=== PATIENT | female | born 1930 | race Caucasian/White ===

== ENCOUNTER 2018-09-01 13:20 | Inpatient (IN) | payer BC, MEDICARE ==
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
[2018-09-01 14:39] LABS: Hematocrit 34.4 % (37.0-47.0); Hemoglobin 11.3 gm/dL (12.5-16.0); Mean Cell Volume 91.5 fl (78-100); Mean Corpuscular Hemoglobin 30.1 pg (27-31); Mean Corpuscular Hgb Conc 32.8 g/dl (32-36); Neutrophil # 15.5 K/mm3 (1.3-6.0); Neutrophil % 88.5 % (42-75.0); Platelet Count 249 K/mm3 (150-450); Red Blood Count 3.76 M/mm3 (4.2-5.4); Red Cell Distribution Width 12.3 % (11.5-14.0); White Blood Count 17.5 K/mm3 (4.0-10.5)
[2018-09-01 14:48] LABS: Albumin * 3.3 gm/dl (3.4-5.0); Anion Gap 15.3 mmol/L (6.8-13.8); BUN/Creatinine Ratio 25.5 (9.0-21.6); Bilirubin, Total 0.3 mg/dL (0.0-1.1); Carbon Dioxide 22.8 mmol/L (24-32.6); Potassium 4.1 mmol/L (3.4-4.6); Total Protein 6.4 gm/dL (6.2-8.2)
[2018-09-01 14:52] LABS: Calcium * 8.8 mg/dL (7.9-10.9)
[2018-09-01] MEDS ORDERED: ACETAMINOPHEN 500 MG TABLET PO PRN ×2 (15:26→17:20)
[2018-09-01] MEDS ORDERED: ONDANSETRON HCL/PF 2 MG/ML VIAL IV PRN ×2 (15:26→17:25)
[2018-09-01] MEDS ORDERED: MORPHINE SULFATE 4 MG/ML SYRG IV PRN (15:26)
[2018-09-01] MEDS ORDERED: HYDROcodone/ACETAMINOPHEN 1 EACH TABLET PO PRN (15:26)
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
--- NOTE | 2018-09-01 17:18 | HP ---
Chief Complaint - Chief Complaint Date of Service: 09/01/18 - n Time of Service: 17:08 Chief Complaint: I have left hip pain since falling this morning History of Present Illness: 88-year-old female with past medical history of hypertension, hyperlipidemia, CKD, was brought to the ER in an ambulance due to left hip pain secondary to a fall that occurred this morning when she slipped on ice. Patient reports while walking with her walker she did not see a passive patch of ice and slipped when she attempted to walk across. Patient fell on her left side but denies hitting her head or loss of consciousness. Upon arriving to the ER had CT and x-rays of the lower extremities were performed and revealed no acute injuries in the brain but a displaced intertrochanteric fracture of the left hip. Ortho was consulted and after evaluating her the instructed as to admit her and prepare for surgery in the morning. Therefore patient was admitted to inpatient diallo and presurgical orders were placed. Medical History (Last Updated 09/01/18 @ 16:20 by Ely Torres RN) Hypertension (Chronic) Onset Date: Unknown Hypercholesterolemia (Chronic) Onset Date: Unknown Surgical History: Surgical History (Last Updated 09/01/18 @ 16:20 by Ely Torres RN) Femur fracture, right rods placed Cataract Onset Date: ~2007 Bilateral eyes History of hip surgery Onset Date: ~08/23/11 Right hip repair Family History: Family History (Last Reviewed 09/01/18 @ 16:20 by Ely Torres RN) Brother , age 91; after hip fracture No problems noted. Sister , age 88 Diabetes COPD (chronic obstructive pulmonary disease) Mother , age 84 Myocardial infarction Social History: Patient Lives/Resources Home Utilized Preferred Language Syriac Do you have any buddhist or No cultural preference? Smoking Status Former smoker Have you smoked in the past 12 No months Alcohol Use none Drug Use none (Last Updated 07/21/18 @ 11:15 by Bhargavi Byrne RN) No Social History Section defined Peds Patient Hx - Developmental: No Pertinent Hx Peds Patient Hx - Medical: No Pertinent Hx Peds Patient Hx - Cardiac/Respiratory: No Pertinent Hx Peds Patient Hx - Surgical: No Surgical History Patient History - Cancer: No Hx of Cancer Review Of Systems (GEN) - Review of Systems Generalized/Overall Review: Present: No Symptoms Reported EENTM: Present: No Symptoms Reported Respiratory: Present: No Symptoms Reported Cardiac: Present: No Symptoms Reported Abdominal: Present: No Symptoms Reported Genitourinary: Present: No Symptoms Reported Musculoskeletal: Present: Joint Pain Neurological: Present: No Symptoms Reported Skin: Present: No Symptoms Reported Endocrine: Present: No Symptoms Reported Immunizations: IMMUNIZATION HX Immunizations Up to Date Yes History of Influenza Vaccine Yes Hx Pneumococcal Vaccination Yes Allergies/Adverse Reactions: Allergies Allergy/AdvReac Type Severity Reaction Status Date / Time No Known Allergies Allergy Verified 09/01/18 16:20 Home Medications: HOME MEDICATIONS lisinopril 10 mg tablet 10 mg PO DAILY #90 tab 07/10/18 [Last Taken Unknown] simvastatin 40 mg tablet 40 mg PO QPM #90 tab 07/10/18 [Last Taken Unknown] triamterene 75 mg-hydrochlorothiazide 50 mg tablet 1 tab PO DAILY #90 tab 07/10/18 [Last Taken Unknown] cyanocobalamin (vit B-12) 1,000 mcg tablet 1,000 mcg PO QMWF tab 07/21/18 [Last Taken Unknown] Exam - Exam Vital Signs: Vital Signs - Last Taken Temp 36.5 C 09/01/18 15:28 Pulse 86 09/01/18 15:35 Resp 17 09/01/18 15:35 BP 126/71 09/01/18 15:35 Pulse Ox 98 09/01/18 15:35 Constitutional: Present: Alert, Oriented x3, Cooperative, Well developed, Well nourished, No distress, Elderly ENT Exam: Present: normal ENT inspection, hearing grossly normal, pharynx normal, TMs normal Eye Exam: bilateral eye: normal inspection, PERRL, EOMI Neck: Present: non-tender, full range of motion, supple, normal inspection, trachea midline Back Exam: Present: normal inspection, no CVA tenderness, no vertebral tenderness Breasts: Present: Exam deferred Respiratory: Present: chest non-tender, lungs clear, normal breath sounds, no respiratory distress, no accessory muscle use Cardiovascular/Chest: Present: normal peripheral pulses, regular rate, rhythm, no chest tenderness, no edema, no gallop, no JVD, no murmur Peripheral Pulses: carotid (R): 3+, carotid (L): 3+, femoral (R): 3+, femoral (L): 3+, dorsalis-pedis (R): 3+, dorsalis-pedis (L): 3+ Abdomen: Present: Normal bowel sounds, soft, nontender, nondistended, no rebound tenderness, no hepatospenomegaly, no masses /Rectal: Present: Exam deferred Extremity: Present: no calf tenderness, normal capillary refill, leg pain, pedal edema, other - Externally rotated and shortened left lower extremity. 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, normal cerebellar test, no motor/sensory deficits, alert, normal mood/affect, oriented x 3 Appearance: Present: appropriate appearance, appropriate insight, neat, no memory impairment Eye contact: Present: cooperative, good eye contact, normal speech Thoughts: Present: normal thought pattern Diagnostic Studies: Abnormal Lab Results 09/01/18 09/01/18 Range/Units 14:30 14:30 WBC 17.5 H (4.0-10.5) K/mm3 RBC 3.76 L (4.2-5.4) M/mm3 Hgb 11.3 L (12.5-16.0) gm/dL Hct 34.4 L (37.0-47.0) % Immature Gran % (Auto) 0.90 H (0.001-0.429) % Immature Gran # (Auto) 0.15 H (0.000-0.0310) K/mm3 Neutrophils % 88.5 H (42-75.0) % Lymphocytes % 4.0 L (20-51) % Neutrophils # 15.5 H (1.3-6.0) K/mm3 Lymphocytes # 0.71 L (1.5-3.5) k/mm3 Monocytes # 1.1 H (0.0-1.0) k/mm3 Carbon Dioxide 22.8 L (24-32.6) mmol/L Anion Gap 15.3 H (6.8-13.8) mmol/L BUN 36 H (3-23) mg/dL Creatinine 1.41 H (0.4-1.4) mg/dL Est GFR (Non-Af Amer) 37 L (60-130) mL/min BUN/Creatinine Ratio 25.5 H (9.0-21.6) Random Glucose 192 H (70-110) mg/dL ALT 15 L (19-67) U/L Albumin 3.3 L (3.4-5.0) gm/dl Laboratory Results WBC 17.5 K/mm3 (4.0-10.5) H 09/01/18 14:30 RBC 3.76 M/mm3 (4.2-5.4) L 09/01/18 14:30 Hgb 11.3 gm/dL (12.5-16.0) L 09/01/18 14:30 Hct 34.4 % (37.0-47.0) L 09/01/18 14:30 MCV 91.5 fl (78-100) 09/01/18 14: MCH 30.1 pg (27-31) 09/01/18 14: MCHC 32.8 g/dl (32-36) 09/01/18 14:30 RDW 12.3 % (11.5-14.0) 09/01/18 14:30 Plt Count 249 K/mm3 (150-450) 09/01/18 14:30 MPV 10.0 fl (8-12.5) 09/01/18 14:30 Immature Gran % (Auto) 0.90 % (0.001-0.429) H 09/01/18 14:30 Immature Gran # (Auto) 0.15 K/mm3 (0.000-0.0310) H 09/01/18 14:30 Neutrophils % 88.5 % (42-75.0) H 09/01/18 14:30 Lymphocytes % 4.0 % (20-51) L 09/01/18 14:30 Monocytes % 6.3 % (0.0-9) 09/01/18 14:30 Eosinophils % 0.1 % (0.0-3.0) 09/01/18 14: Basophils % 0.2 % (0.0-1.0) 09/01/18 14:30 Nucleated RBC % 0.0 k/mm3 (0-1) 09/01/18 14:30 Neutrophils # 15.5 K/mm3 (1.3-6.0) H 09/01/18 14:30 Lymphocytes # 0.71 k/mm3 (1.5-3.5) L 09/01/18 14:30 Monocytes # 1.1 k/mm3 (0.0-1.0) H 09/01/18 14:30 Eosinophils # 0.0 k/mm3 (0.0-0.7) 09/01/18 14:30 Absolute Basophils 0.0 k/mm3 (0.0-0.1) 09/01/18 14:30 Sodium 136 mmol/L (132-142) 09/01/18 14:30 Plasma Sodium 137 mmol/L (130-142) 09/01/18 14:30 Potassium 4.1 mmol/L (3.4-4.6) 09/01/18 14:30 Chloride 102 mmol/L (97-106) 09/01/18 14:30 Carbon Dioxide 22.8 mmol/L (24-32.6) L 09/01/18 14:30 Anion Gap 15.3 mmol/L (6.8-13.8) H 09/01/18 14:30 BUN 36 mg/dL (3-23) H 09/01/18 14:30 Creatinine 1.41 mg/dL (0.4-1.4) H 09/01/18 14:30 Est GFR (Non-Af Amer) 37 mL/min (60-130) L 09/01/18 14:30 BUN/Creatinine Ratio 25.5 (9.0-21.6) H 09/01/18 14:30 Random Glucose 192 mg/dL (70-110) H 09/01/18 14:30 Calcium 8.8 mg/dL (7.9-10.9) 09/01/18 14:30 Calcium Adj for Albumin 9.0 mg/dL (8.4-10.2) 09/01/18 14:30 Total Bilirubin 0.3 mg/dL (0.0-1.1) 09/01/18 14:30 AST 17 U/L (0-48) 09/01/18 14:30 ALT 15 U/L (19-67) L 09/01/18 14:30 Alkaline Phosphatase 64 U/L (50-170) 09/01/18 14:30 Creatine Kinase 81 U/L (0-259) 09/01/18 14:30 Total Protein 6.4 gm/dL (6.2-8.2) 09/01/18 14:30 Albumin 3.3 gm/dl (3.4-5.0) L 09/01/18 14:30 Assessment/Plan - Narrative Narrative: After evaluation of patient at bedside and the medical record decision to admit to inpatient diallo for surgery in the morning with Ortho was taken. Preop labs and orders were placed. Will follow up with patient at the procedure. - Assessment/Plan (1) Hip fracture, intertrochanteric Problem: Acute Qualifiers: Encounter type: initial encounter Fracture type: closed Fracture alignment: displaced Laterality: left Qualified Code(s): S72.142A - Displaced intertrochanteric fracture of left femur, initial encounter for closed fracture (2) Fall Problem: Acute Qualifiers: Encounter type: initial encounter Qualified Code(s): W19.XXXA - Unspecified fall, initial encounter
[2018-09-01] MEDS ORDERED: MORPHINE SULFATE 2 MG/ML DISP.SYRIN IV PRN ×3 (17:26→17:30)
[2018-09-01] MEDS: CYANOCOBALAMIN 1,000 MCG TABLET PO SCH (17:41)
[2018-09-01] MEDS: SIMVASTATIN 40 MG TABLET PO SCH (20:40)
[2018-09-02] MEDS: RINGER'S SOLUTION,LACTATED 1,000 ML IV PRN ×2 (05:23→13:00)
--- NOTE | 2018-09-02 11:40 | ANES ---
Anesthesia Pre Procedure Eval Vitals/Labs: Last Vital Signs Temp 36.9 C 09/02/18 08:00 Pulse 93 09/02/18 08:00 Resp 20 09/02/18 08:00 BP 154/71 H 09/02/18 08:00 Pulse Ox 96 09/02/18 08:00 HOME MEDICATIONS lisinopril 10 mg tablet 10 mg PO DAILY #90 tab 07/10/18 [Last Taken Unknown] simvastatin 40 mg tablet 40 mg PO QPM #90 tab 07/10/18 [Last Taken Unknown] triamterene 75 mg-hydrochlorothiazide 50 mg tablet 1 tab PO DAILY #90 tab 07/10/18 [Last Taken Unknown] cyanocobalamin (vit B-12) 1,000 mcg tablet 1,000 mcg PO QMWF tab 07/21/18 [Last Taken Unknown] Allergies/Adverse Reactions: Allergies Allergy/AdvReac Type Severity Reaction Status Date / Time No Known Allergies Allergy Verified 09/01/18 16:20 - Planned Procedure Planned Procedure: ORIF left hip Medication List Reviewed:: Yes Allergies Verified: Yes Medical History (Last Reviewed 09/02/18 @ 11:39 by Ad Levine CRNA) Hypertension (Chronic) Onset Date: Unknown Hypercholesterolemia (Chronic) Onset Date: Unknown Surgical History (Last Reviewed 09/02/18 @ 11:39 by Ad Levine CRNA) Femur fracture, right rods placed Cataract Onset Date: ~2007 Bilateral eyes History of hip surgery Onset Date: ~08/23/11 Right hip repair Family History (Last Reviewed 09/02/18 @ 11:39 by Ad Levine CRNA) Brother , age 91; after hip fracture No problems noted. Sister , age 88 Diabetes COPD (chronic obstructive pulmonary disease) Mother , age 84 Myocardial infarction - Family Anesthesia History Family History:: no untoward family reactions to anesthesia, no familial bleeding tendencies, no family history of clotting disorders, no family history of premature - Airway/Neck/Teeth Within Normal Limits:: Yes Denture Type: Full- Upper & Lower Mallampatti Score: 2 Thyromental (T-M) distance: > 6 cm Mandibulo Hyoid distance: > 3 cm - Respiratory Respiratory: lungs clear Smoking Status: Never smoker Discussed smoking cessation including day of surgery: No Sleep Apnea currently treated: No Sleep Apnea by current assessment: No Discussed Risks/Treatment of CAROLYNN: No - Cardiovascular Tolerates Activity: Fair Heart Sounds: S1 & S2, Regular - Anesthesia Assessment and Plan ASA Class: PS, III Anesthesia Type Plan: Spinal
--- NOTE | 2018-09-02 11:51 | PN ---
Subjective - Date and Time Seen Date: 09/02/18 Time: 11:39 Subjective Narrative: I feel sleepy and tired, because I did not get much sleep last night. Objective Objective Narrative: Patient was evaluated at bedside and was found to be afebrile and in no acute distress. She reports adequate pain control and is comfortable. Procedure to repair right hip fracture scheduled for this afternoon, so patient was left n.p.o. We will recheck on her after the procedure. Her blood pressure was mildly elevated this morning therefore her blood pressure medications were administered we will reevaluate blood pressure in a few hours. - Review of Systems Generalized/Overall Review: Reports: Weakness EENTM: Reports: No Symptoms Reported Respiratory: Reports: No Symptoms Reported Cardiac: Reports: No Symptoms Reported Abdominal: Reports: No Symptoms Reported Genitourinary Symptoms: Reports: No Symptoms Reported Musculoskeletal Complaints: Reports: Joint Pain, Joint Swelling, Muscle Pain Neurological: Reports: No Symptoms Reported Skin: Reports: No Symptoms Reported Endocrine: Reports: No Symptoms Reported - Vitals Vitals: Last Vital Signs Temp 36.9 C 09/02/18 08:00 Pulse 93 09/02/18 08:00 Resp 20 09/02/18 08:00 BP 154/71 H 09/02/18 08:00 Pulse Ox 96 09/02/18 08:00 - Abnormal Lab Findings Abnormal Lab Findings: Abnormal Lab Results 09/01/18 09/01/18 Range/Units 14:30 14:30 WBC 17.5 H (4.0-10.5) K/mm3 RBC 3.76 L (4.2-5.4) M/mm3 Hgb 11.3 L (12.5-16.0) gm/dL Hct 34.4 L (37.0-47.0) % Immature Gran % (Auto) 0.90 H (0.001-0.429) % Immature Gran # (Auto) 0.15 H (0.000-0.0310) K/mm3 Neutrophils % 88.5 H (42-75.0) % Lymphocytes % 4.0 L (20-51) % Neutrophils # 15.5 H (1.3-6.0) K/mm3 Lymphocytes # 0.71 L (1.5-3.5) k/mm3 Monocytes # 1.1 H (0.0-1.0) k/mm3 Carbon Dioxide 22.8 L (24-32.6) mmol/L Anion Gap 15.3 H (6.8-13.8) mmol/L BUN 36 H (3-23) mg/dL Creatinine 1.41 H (0.4-1.4) mg/dL Est GFR (Non-Af Amer) 37 L (60-130) mL/min BUN/Creatinine Ratio 25.5 H (9.0-21.6) Random Glucose 192 H (70-110) mg/dL ALT 15 L (19-67) U/L Albumin 3.3 L (3.4-5.0) gm/dl - Exam Constitutional: Present: Alert, Oriented x3, Cooperative, Well developed, Well nourished, No distress, Acute distress ENT Exam: Present: normal ENT inspection, hearing grossly normal, pharynx no rmal, TMs normal Neck: Present: non-tender, full range of motion, supple, normal inspection, trachea midline Breasts: Present: Exam deferred Respiratory: Present: chest non-tender, lungs clear, normal breath sounds, no respiratory distress, no accessory muscle use Cardiovascular/Chest: Present: normal peripheral pulses, regular rate, rhythm, no chest tenderness, no edema, no gallop, no JVD, no murmur Abdomen: Present: Normal bowel sounds, soft, nontender, nondistended, no rebound tenderness, no hepatospenomegaly, no masses /Rectal: Present: Exam deferred Extremity: Present: no pedal edema, inflammation, leg pain Skin Exam: Present: normal color, warm/dry, no cyanosis Neurologic: Present: 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 - Problems/Diagnosis (1) Hip fracture, intertrochanteric Problem: Acute Qualifiers: Encounter type: initial encounter Fracture type: closed Fracture alignme nt: displaced Laterality: left Qualified Code(s): S72.142A - Displaced intertrochanteric fracture of left femur, initial encounter for closed fracture (2) Fall Problem: Acute Qualifiers: Encounter type: initial encounter Qualified Code(s): W19.XXXA - Unspecified fall, initial encounter
[2018-09-02] MEDS ORDERED: ceFAZolin SODIUM 1 GM VIAL IV ONE (12:13)
[2018-09-02] MEDS ORDERED: MAGNESIUM HYDROXIDE 30 ML UDC PO PRN (13:50)
[2018-09-02] MEDS ORDERED: MAG HYDROX/ALUMINUM HYD/SIMETH 30 ML UDC PO PRN (13:50)
[2018-09-02] MEDS ORDERED: HYDROcodone/ACETAMINOPHEN 1 EACH TABLET PO PRN (13:50)
[2018-09-02] MEDS ORDERED: MORPHINE SULFATE 2 MG/ML DISP.SYRIN IV PRN (13:50)
--- NOTE | 2018-09-02 14:00 | OR ---
Operative Report - Dictated Report Narrative: Date: 09/02/2018 Surgeon: Duane Lehman M.D. Chair Pad Maker: Dave Sharif PA-C Preoperative diagnosis: Left intertrochanteric femur fracture Postoperative diagnosis: Left intertrochanteric femur fracture Operations and procedures: 1. Closed reduction, cephalo-medullary fixation left intertrochanteric femur fracture 2. Intraoperative interpretation of radiographs Anesthesia: Spinal Specimens: None Estimated blood loss: 200 Milliliters Retained implants: [employer] Trigen InterTAN 130 degree size 11.5 mm by 20 centimeter nail with 95 millimeter lag screw and 90 millimeter compression screw, with distal locking screw Complications: None Indications for procedure: Gerson is a 88-year-old female who lives alone at home and ambulates with a walker who injured the left leg after lipping on the ice going out to get her mail. They were admitted to the hospital after being evaluated in the emergency department. Once the medical provider felt that they were stable for surgical treatment, the risks and benefits alternatives were discussed. The risks of , blood clots, bleeding, infection, nerve/tendon/blood vessel injury, malunion, nonunion, failure of implants, painful implants, arthrosis, and need for additional procedures were discussed. The extremity was marked and consent was obtained on the floor. Procedure: After marking the operative extremity on the floor, the patient was taken to the operating room. A timeout was performed. IV antibiotics consisting of 1 g of Ancef was administered. A spinal anesthetic was induced by anesthesia, and the patient was then placed onto a fracture table with a well-padded perineal post. The non-operative leg was placed in a well-padded well leg rose in lithotomy position with an SCD on the leg. The operative leg was placed in a well-padded traction boot. Longitudinal traction, internal rotation, flexion, and adduction were utilized in order to reduce the fracture. Preliminary images were attained utilizing C-arm in both the AP and lateral views. This confirmed that we had obtained adequate visualization of the fracture as well as reduction. Next the hip was then prepped and draped in a standard sterile fashion. Next, the guidewire was placed percutaneously proximal to the greater trochanter to aditya a starting point at the tip of the greater trochanter centered on the lateral view. This was advanced down to the level below the lesser trochanter. A scalpel was utilized to dissect down to the greater trochanter in order to advance the soft tissue protector down to bone. The entry reamer was then advanced down the proximal femur to the level of the lesser trochanter. The above nail was then selected and impacted into place. The outrigger was utilized in order to confirm the appropriate depth of the nail. Using the alignment device on the outrigger, a small incision was made over the lateral femur. Sharp dissection was carried through the iliotibial band down to the proximal femur. The guidewire was was placed into the femoral head in a center center position on AP and lateral views. A tip apex distance less than 25 mm combined was obtained. Once we felt that we had placed the guidewire in the appropriate position, it was measured. Next the compression screw entry drill was advanced through the lateral cortex. This was then drilled down to the appropriate depth for the compression screw, again confirming that we were within the confines of the bone. The derotational bar was then placed and the lag screw was drilled to the appropriate depth. The lag screw was then secured in place ensuring that we were within the confines of the bone. The compression screw was then inserted allowing for compression while releasing the traction on the leg. Using C-arm this was visualized to allow for compression across the fracture site. Once it was felt we had adequately stabilized the intertrochanteric fracture, the distal interlocking screw was placed in a static position confirmed to be the appropriate length and within the nail on both AP and lateral views. The nail was secured allowing for controlled compression and the outrigger was removed. The wounds were then thoroughly irrigated. Final images were obtained. The hip was placed through range of motion and showed no crepitance. The deep fascia was closed with 0 Vicryl, the subcutaneous tissue with 3-0 Vicryl, and the skin was closed with michael. Sterile dressings of Xeroform, 4 x 4s, and tegaderm were applied. All sponge, sharp, and instrument counts were correct prior to closing the wounds. The patient was then awoken and transferred to the postanesthesia care unit in stable condition.
--- NOTE | 2018-09-02 14:22 | ANES ---
Post Anesthesia Discharge - Transfer of Care Transfer of Care handoff given to nurse: Yes - Discharge from PACU Discharge from PACU when meets criteria: Yes - Discharge to ASU Discharge to ASU-no complications/pt stable: Yes
--- NOTE | 2018-09-02 14:22 | ANES ---
Post Anesthesia Assessment - Vital Signs Vitals: Last Vital Signs Temp 36.8 C 09/02/18 14:15 Pulse 76 09/02/18 14:15 Resp 18 09/02/18 14:15 BP 104/86 09/02/18 14:15 Pulse Ox 98 09/02/18 14:15 Airway Patency: Normal - Mental Status Level Of Consciousness: Awake - Pain Level Pain Score: 0 - N/V Assessment Nausea/Vomiting Presence: None Dehydration:: No
[2018-09-02] MEDS: LISINOPRIL 10 MG TABLET PO SCH (15:30)
[2018-09-02] MEDS: TRIAMTERENE/HYDROCHLOROTHIAZID 1 TAB TABLET PO SCH (15:31)
[2018-09-02] MEDS: ceFAZolin SODIUM 1 GM in DEXTROSE 5 % IN WATER 100 ML IV SCH ×2 (17:42)
[2018-09-02] MEDS: HYDROcodone/ACETAMINOPHEN 1 EACH TABLET PO PRN (19:38)
[2018-09-02] MEDS: SENNOSIDES/DOCUSATE SODIUM 1 TAB TABLET PO SCH (22:13)
[2018-09-02] MEDS: SIMVASTATIN 40 MG TABLET PO SCH (22:13)
[2018-09-03] MEDS: ceFAZolin SODIUM 1 GM in DEXTROSE 5 % IN WATER 100 ML IV SCH ×4 (03:17→10:55)
[2018-09-03 06:10] LABS: Mean Cell Volume 91.7 fl (78-100); Mean Corpuscular Hemoglobin 30.3 pg (27-31); Mean Platelet Volume 10.6 fl (8-12.5); Platelet Count 149 K/mm3 (150-450); Red Blood Count 2.54 M/mm3 (4.2-5.4); Red Cell Distribution Width 12.8 % (11.5-14.0); White Blood Count 8.4 K/mm3 (4.0-10.5)
[2018-09-03 06:12] LABS: Anion Gap 8.4 mmol/L (6.8-13.8); Calcium * 8.1 mg/dL (7.9-10.9); Carbon Dioxide 26.8 mmol/L (24-32.6); Estimated Creat Clear 20.1; Potassium 4.2 mmol/L (3.4-4.6)
[2018-09-03 06:16] LABS: Hemoglobin 7.7 gm/dL (12.5-16.0)
[2018-09-03 06:17] LABS: Hematocrit 23.3 % (37.0-47.0)
[2018-09-03] MEDS: HYDROcodone/ACETAMINOPHEN 1 EACH TABLET PO PRN ×2 (08:42→15:25)
[2018-09-03] MEDS: TRIAMTERENE/HYDROCHLOROTHIAZID 1 TAB TABLET PO SCH (10:01)
[2018-09-03] MEDS: LISINOPRIL 10 MG TABLET PO SCH (10:01)
--- NOTE | 2018-09-03 10:40 | PN ---
Subjective - Date and Time Seen Date: 09/03/18 Time: 10:31 Subjective Narrative: I feel better, less pain Objective Objective Narrative: 88-year-old female admitted for a right intertrochanteric hip fracture secondary to fall status post fracture repair the #1, was evaluated at bedside and was found to be afebrile and no acute acute distress. Patient tolerated the procedure without any adverse events, she has started in hospital PT and OT per orthopedics orders. Postop labs demonstrate a hemoglobin of 7.7, this was discussed with orthopedic surgeon and decision to reevaluate hemoglobin levels in the morning was made. Patient reports feeling better, she reports less pain in the area, and is tolerating sitting in a chair without any issues. At the moment she is tolerating diet without any issues. Oral ferrous sulfate will be ordered for the postop anemia. - Review of Systems Generalized/Overall Review: Reports: No Symptoms Reported EENTM: Reports: No Symptoms Reported Respiratory: Reports: No Symptoms Reported Cardiac: Reports: No Symptoms Reported Abdominal: Reports: No Symptoms Reported Genitourinary Symptoms: Reports: No Symptoms Reported Musculoskeletal Complaints: Reports: Joint Pain Neurological: Reports: No Symptoms Reported Skin: Reports: No Symptoms Reported Endocrine: Reports: No Symptoms Reported - Vitals Vitals: Last Vital Signs Temp 36.8 C 09/03/18 06:33 Pulse 93 09/03/18 10:01 Resp 16 09/03/18 06:33 BP 113/53 09/03/18 10:01 Pulse Ox 99 09/03/18 06:33 - Abnormal Lab Findings Abnormal Lab Findings: Abnormal Lab Results 09/03/18 09/03/18 Range/Units 05:50 05:50 RBC 2.54 L (4.2-5.4) M/mm3 Hgb 7.7 L* D (12.5-16.0) gm/dL Hct 23.3 L* D (37.0-47.0) % Plt Count 149 L (150-450) K/mm3 BUN 41 H (3-23) mg/dL Creatinine 1.64 H (0.4-1.4) mg/dL Est GFR (Non-Af Amer) 31 L (60-130) mL/min BUN/Creatinine Ratio 25.0 H (9.0-21.6) Random Glucose 141 H (70-110) mg/dL - Exam Constitutional: Present: Alert, Oriented x3, Cooperative, Well developed, Well nourished, No distress ENT Exam: Present: normal ENT inspection, hearing grossly normal, pharynx normal, TMs normal Neck: Present: non-tender, full range of motion, supple, normal inspection, trachea midline Breasts: Present: Exam deferred Respiratory: Present: chest non-tender, lungs clear, normal breath sounds, no respiratory distress, no accessory muscle use Cardiovascular/Chest: Present: normal peripheral pulses, regular rate, rhythm, no chest tenderness, no edema, no gallop, no JVD, no murmur, no rub Abdomen: Present: Normal bowel sounds, soft, nontender, nondistended, no rebound tenderness, no hepatospenomegaly, no masses /Rectal: Present: Exam deferred Extremity: Present: no calf tenderness, normal capillary refill, leg pain, other - Right hip and lateral femoral area covered by clean dry bandage, there is no evidence of bleeding or infection Skin Exam: Present: normal color, warm/dry, no cyanosis Lymphatic: Present: no adenopathy Neurologic: Present: commercial lines account manager II-XII nml as tested, normal cerebellar test, no motor/sensory deficits, alert, normal mood/affect, oriented x 3 Appearance: Present: appropriate appearance, appropriate insight, neat, no memory impairment Eye contact: Present: cooperative, good eye contact, normal speech Thoughts: Present: normal thought pattern, no apparent hallucination, auditory hallucinations Cauti Physician Documentation - Urinary Catheter Management Urethral (Clarke) Urethral Indwelling: No Date of Insertion: 09/02/18 Time of Insertion: 12:55 Assessment/Plan Plan Narrative: Patient will continue with in-hospital PT and OT, she will be treated with analgesics for adequate pain control, and we will prescribe oral ferrous sulfate for postop anemia. We will follow-up with further recommendations from Ortho. - Problems/Diagnosis (1) Hip fracture, intertrochanteric Problem: Acute Qualifiers: Encounter type: initial encounter Fracture type: closed Fracture alignment: displaced Laterality: left Qualified Code(s): S72.142A - Displaced intertrochanteric fracture of left femur, initial encounter for closed fracture (2) Fall Problem: Acute Qualifiers: Encounter type: initial encounter Qualified Code(s): W19.XXXA - Unspecified fall, initial encounter (3) Postoperative anemia Problem: Acute
[2018-09-03] MEDS: FERROUS SULFATE 325 MG TABLET PO SCH ×2 (13:22→17:06)
[2018-09-03] MEDS: ENOXAPARIN SODIUM 30 MG/0.3 ML SYRG SC SCH (13:22)
--- NOTE | 2018-09-03 16:09 | PN ---
Subjective - Date and Time Seen Date: 09/03/18 Time: 16:06 Subjective Narrative: Patient reports no acute events overnight. She has been up walking with PT. She has no pain at rest, moderate pain while standing. She has had PO diet without complication. She reports no other acute symptoms. Objective - Vitals Vitals: Last Vital Signs Temp 37.1 C 09/03/18 14:00 Pulse 97 09/03/18 14:00 Resp 20 09/03/18 14:00 BP 116/53 09/03/18 14:00 Pulse Ox 98 09/03/18 14:00 - Abnormal Lab Findings Abnormal Lab Findings: Abnormal Lab Results 09/03/18 09/03/18 Range/Units 05:50 05:50 RBC 2.54 L (4.2-5.4) M/mm3 Hgb 7.7 L* D (12.5-16.0) gm/dL Hct 23.3 L* D (37.0-47.0) % Plt Count 149 L (150-450) K/mm3 BUN 41 H (3-23) mg/dL Creatinine 1.64 H (0.4-1.4) mg/dL Est GFR (Non-Af Amer) 31 L (60-130) mL/min BUN/Creatinine Ratio 25.0 H (9.0-21.6) Random Glucose 141 H (70-110) mg/dL - Exam Constitutional: Present: Alert, Cooperative, No distress Respiratory: Present: no respiratory distress Extremity: Present: other - LLE--> bandages c/d/i, SILT, distal cap refill brisk, 5/5 PF/DF, mild ttp over left hip Eye contact: Present: cooperative Thoughts: Present: normal thought pattern Cauti Physician Documentation - Urinary Catheter Management Urethral (Clarke) Urethral Indwelling: No Date of Insertion: 09/02/18 Time of Insertion: 12:55 Date of Removal: 09/03/18 Time of Removal: 08:45 Assessment/Plan Plan Narrative: -88 y/o post-op day #1 s/p left cephalomedullary nailing of intertrochanteric femur fracture - WBAT, assistance PRN with walker - PT/OT progress as tolerated - PO diet as tolerated - PO pain medication PRN - DVT prophy: lovenox, SCDs in bed, thomas hose - Hgb 7.7, continue to monitor recs per medicine - Maintain post-op dressing in place - Problems/Diagnosis (1) Hip fracture, intertrochanteric Problem: Acute Qualifiers: Encounter type: initial encounter Fracture type: closed Fracture alignment: displaced Laterality: left Qualified Code(s): S72.142A - Displaced intertrochanteric fracture of left femur, initial encounter for closed fracture
[2018-09-03] MEDS: SENNOSIDES/DOCUSATE SODIUM 1 TAB TABLET PO SCH (21:04)
[2018-09-03] MEDS: SIMVASTATIN 40 MG TABLET PO SCH (21:05)
[2018-09-04 06:30] LABS: Mean Cell Volume 92.2 fl (78-100); Mean Corpuscular Hemoglobin 29.6 pg (27-31); Mean Corpuscular Hgb Conc 32.1 g/dl (32-36); Mean Platelet Volume 10.8 fl (8-12.5); Neutrophil # 8.5 K/mm3 (1.3-6.0); Neutrophil % 66.2 % (42-75.0); Platelet Count 193 K/mm3 (150-450); Red Blood Count 2.57 M/mm3 (4.2-5.4); Red Cell Distribution Width 12.8 % (11.5-14.0); White Blood Count 12.8 K/mm3 (4.0-10.5)
[2018-09-04 06:34] LABS: Hematocrit 23.7 % (37.0-47.0); Hemoglobin 7.6 gm/dL (12.5-16.0)
[2018-09-04 06:43] LABS: Anion Gap 16.9 mmol/L (6.8-13.8); BUN/Creatinine Ratio 23.7 (9.0-21.6); Calcium * 8.1 mg/dL (7.9-10.9); Carbon Dioxide 20.8 mmol/L (24-32.6); Estimated Creat Clear 15.6; Potassium 3.7 mmol/L (3.4-4.6)
--- NOTE | 2018-09-04 07:52 | PN ---
Progess Note - Interim Date: 09/04/18 Time: 07:50 Narrative: 09/04/18 07:50 Patient c/o of feeling very weak and light headed when she stands up. Hb is down to 7.6. Will give her BT and she will need and agrees with NH placement for continuance of PT for her deconditioning as well. ARF likely due prerenal- diuretic and Anemia. hold diuretic and give 1 unit.
[2018-09-04] MEDS: FERROUS SULFATE 325 MG TABLET PO SCH ×2 (08:21→13:33)
[2018-09-04] MEDS: CYANOCOBALAMIN 1,000 MCG TABLET PO SCH (08:21)
[2018-09-04] MEDS: LISINOPRIL 10 MG TABLET PO SCH (08:21)
--- NOTE | 2018-09-04 09:10 | DS ---
(1) Fall Problem: Acute Qualifiers: Encounter type: initial encounter Qualified Code(s): W19.XXXA - Unspecified fall, initial encounter (2) Hip fracture, intertrochanteric Problem: Acute Qualifiers: Encounter type: initial encounter Fracture type: closed Fracture alignment: displaced Laterality: left Qualified Code(s): S72.142A - Displaced intertrochanteric fracture of left femur, initial encounter for closed fracture (3) Hypercholesterolemia Problem: Chronic (4) Hypertension Problem: Chronic (5) Acute blood loss anemia Problem: Acute Description of Stay: Gerson Green, is an 88-year-old female with past medical history of hypertension, hyperlipidemia, CKD, was brought to the ER on 09/01/2018 in an ambulance due to left hip pain secondary to a fall that occured when she slipped on ice. She said that while walking with her walker, she did not see a passive patch of ice and slipped when she attempted to walk across. Patient fell on her left side but denied hitting her head or having loss of consciousness. Upon arriving to the ER had CT and x-rays of the lower extremities were performed and revealed no acute injuries in the brain but a displaced intertrochanteric fracture of the left hip. Ortho was consulted and she underwent closed reduction and cephalomedullary nail fixation. She developed symptomatic anemia post op and got 1 unit of PRBC. Her Cr also bumped up and her diuretic was held. She is stable to be discharged today to [facility] for more PT and strengthening exercises before going home. Procedures Performed: see notes below List Procedures: CRIF with cephalomedullary nail fixation, left intertrochanteric fracture Results and Findings: Lab Pending Results 09/01/18 14:25: Blood Type A Positive, Antibody Screen Negative, Crossmatch See Detail 09/01/18 14:30: WBC 17.5 H, RBC 3.76 L, Hgb 11.3 L, Hct 34.4 L, MCV 91.5, MCH 30.1, MCHC 32.8, RDW 12.3, Plt Count 249, MPV 10.0, Immature Gran % (Auto) 0.90 H, Immature Gran # (Auto) 0.15 H, Neutrophils % 88.5 H, Lymphocytes % 4.0 L, Monocytes % 6.3, Eosinophils % 0.1, Basophils % 0.2, Nucleated RBC % 0.0, Neutrophils # 15.5 H, Lymphocytes # 0.71 L, Monocytes # 1.1 H, Eosinophils # 0.0, Absolute Basophils 0.0 09/01/18 14:30: Sodium 136, Plasma Sodium 137, Potassium 4.1, Chloride 102, Carbon Dioxide 22.8 L, Anion Gap 15.3 H, BUN 36 H, Creatinine 1.41 H, Est GFR (Non-Af Amer) 37 L, BUN/Creatinine Ratio 25.5 H, Random Glucose 192 H, Calcium 8.8, Calcium Adj for Albumin 9.0, Total Bilirubin 0.3, AST 17, ALT 15 L, Alkaline Phosphatase 64, Creatine Kinase 81, Total Protein 6.4, Albumin 3.3 L 09/03/18 05:50: WBC 8.4 D, RBC 2.54 L, Hgb 7.7 L* D, Hct 23.3 L* D, MCV 91.7, MCH 30.3, MCHC 33.0, RDW 12.8, Plt Count 149 L, MPV 10.6 09/03/18 05:50: Sodium 136, Plasma Sodium 137, Potassium 4.2, Chloride 105, Carbon Dioxide 26.8, Anion Gap 8.4, BUN 41 H, Creatinine 1.64 H, Est GFR (Non-Af Amer) 31 L, BUN/Creatinine Ratio 25.0 H, Random Glucose 141 H, Calcium 8.1 09/04/18 06:20: WBC 12.8 H D, RBC 2.57 L, Hgb 7.6 L*, Hct 23.7 L*, MCV 92.2, MCH 29.6, MCHC 32.1, RDW 12.8, Plt Count 193, MPV 10.8, Immature Gran % (Auto) 1.90 H, Immature Gran # (Auto) 0.24 H, Neutrophils % 66.2, Lymphocytes % 20.0, Monocytes % 11.0 H, Eosinophils % 0.7, Basophils % 0.2, Nucleated RBC % 0.0, Neutrophils # 8.5 H, Lymphocytes # 2.57, Monocytes # 1.4 H, Eosinophils # 0.1, Absolute Basophils 0.0 09/04/18 06:20: Sodium 136, Plasma Sodium 137, Potassium 3.7, Chloride 102, Carbon Dioxide 20.8 L, Anion Gap 16.9 H, BUN 50 H, Creatinine 2.11 H D, Est GFR (Non-Af Amer) 23 L D, BUN/Creatinine Ratio 23.7 H, Random Glucose 167 H, Calcium 8.1 Discharge Location: [facility] Disposition: SNF Condition: Stable Level of Care: SNF Discharge Activity: Other - per Ortho instructions Discharge Diet: Low salt Prison Therapy: Physicial Therapy, Occupation Therapy Referrals: Hiren Lua MD [Primary Care Provider] - Additional Patient Instructions (free text): Fax discharge orders and medications and call report. Will follow up patient in the NH. Follow up with Dr Lehman 09/18 at 10:30. Needs Lovenox through 09/18. Ortho will decide at follow up appointment if this needs continued. Prescriptions (Any new or edited meds): Acetaminophen [Tylenol] 500 mg PO Q6H PRN #30 tablet PRN Reason: Mild Pain (Pain Scale 1-3) Enoxaparin Sodium [Lovenox] 30 mg SC Q24H #14 disp.syrin Ferrous Sulfate 325 mg PO TID #90 tablet HYDROcodone/ACETAMINOPHEN [Thornton 5-325] 1 each PO Q4H PRN #30 tablet PRN Reason: Moderate Pain (Pain Scale 4-6) Complete Home Medications List: Complete Home Medication List: lisinopril 10 mg tablet 10 mg PO DAILY #90 tab 07/10/18 simvastatin 40 mg tablet 40 mg PO QPM #90 tab 07/10/18 cyanocobalamin (vit B-12) 1,000 mcg tablet 1,000 mcg PO QMWF tab 07/21/18 Acetaminophen [Tylenol] 500 mg PO Q6H PRN #30 tablet 09/04/18 Enoxaparin Sodium [Lovenox] 30 mg SC Q24H #14 disp.syrin 09/04/18 Ferrous Sulfate 325 mg PO TID #90 tablet 09/04/18 HYDROcodone/ACETAMINOPHEN [Thornton 5-325] 1 each PO Q4H PRN #30 tablet 09/04/18 Magnesium Hydroxide [Milk Of Magnesia] 30 ml PO DAILY PRN udc 09/04/18 Sennosides/Docusate Sodium [Senokot-S] 2 tab PO HS tablet 09/04/18
--- NOTE | 2018-09-04 09:17 | PN ---
Progess Note - Interim Date: 09/04/18 Time: 09:15 Narrative: 09/04/18 09:15 Patient reports no acute events overnight, she has stated she has mild decrease in appetite, but is tolerating PO diet. She states her pain is well controlled, mild increase with walking and weight bearing. She states the pain is improved from before surgery. Exam reveals LLE--> SILT, mild ttp over left hip, bandages c/d/i, 5/5 PF/DF, distal cap refill brisk -88 y/o post-op day #2 s/p left cephalomedullary nailing of intertrochanteric femur fracture - WBAT, assistance PRN with walker - PT/OT progress as tolerated - PO diet as tolerated - PO pain medication PRN - DVT prophy: lovenox until f/u with orthopedics, thomas angel - Hgb 7.6, continue to monitor recs per medicine - Maintain dressing clean and dry, can change if needed due to increased drainage, continue to monitor - Dispo: SNF for further PT/OT, f/u at 2 weeks post-op with orthopedic outpatient clinic
[2018-09-04] MEDS: ENOXAPARIN SODIUM 30 MG/0.3 ML SYRG SC SCH (13:33)
[2018-09-04 15:50] VITALS: BP 150/63
== END 2018-09-04 15:20 | DRG 481 ==
LOC: ER 13:20 → MS 15:16 → UNDODISIN 09-02 13:45
PROVIDERS: ADMIT Family Medicine; ATTEND Internal Medicine
CPT/HCPCS: 36415; 70450; 71010; 71045; 73502; 73552; 76000; 80048; 80053; 82550; 85025; 85027; 86850; 86900; 93005; 97110; 97162; 97166; 99284; P9016